=== PATIENT | female | born 1995 | race Caucasian/White ===

== ENCOUNTER 2016-06-30 16:06 | Emergency (ER) | payer OTHER ==
[~2016-06-30] VITALS: Wt 67.0 kg
[2016-06-30] MEDS ORDERED: ACETAMINOPHEN 500 MG TAB PO STA (16:51)
--- NOTE | 2016-06-30 16:59 | ERD ---
ER Documentation Chief Complaint Date/Time DATE: 06/30/16 TIME: 16:57 Chief Complaint SHARP PAIN AT BACK OF HEAD, NO DIZZINESS, EDC 11/24/2016 HPI Patient is a 21 year old female who is who states she is approximately 19 weeks presents to the ED with occipital headache that radiates to the front and a feeling of "fluid moving in her head." She also complains of runny nose. She denies cough, congestion, fever, chills. Denies dizziness, neck pain neck stiffness. She denies stating this is the worst headache of her life. States that her pain comes and goes and currently it is a mild headache. Denies leg pain or leg swelling. Denies abdominal pain, nausea, vomiting or diarrhea. Denies pelvic pain or vaginal bleeding. She states that she does have movements. ROS All systems reviewed and are negative except as per history of present illness. Medications Home Meds Active Scripts Sodium Chloride (Saline Nasal [place]) 30 Ml [place], 30 ML NS BID for 14 Days, SPRAY Prov:BONNY HOOD PA-C 06/30/16 Acetaminophen* (Tylophen*) 500 Mg Capsule, 1 CAP PO Q6H Y for PAIN AND OR ELEVATED TEMP, #20 CAP Prov:BONNY HOOD PA-C 06/30/16 Allergies Allergies: Coded Allergies: No Known Allergy (Unverified , 12/20/12) PMhx/Soc History of Surgery: Yes (rhinoplasty 2011, tonsilectomy) Anesthesia Reaction: No Hx Neurological Disorder: No Hx Respiratory Disorders: No Hx Cardiac Disorders: No Hx Psychiatric Problems: No Hx Miscellaneous Medical Probl: Yes (OVARIAN CYSTS) Hx Alcohol Use: No Hx Substance Use: No Hx Tobacco Use: No FmHx Family History: No coronary disease, No diabetes, No other Physical Exam Vitals Physical Exam GENERAL: Well-developed, well-nourished female. Appears in no acute distress. HEAD: Normocephalic, atraumatic. EYES: Pupils are equally reactive bilaterally. EOMs grossly intact. No conjunctival erythema. Lateral TMs are nonerythematous and nonbulging. ENT: Moist mucous membranes. No uvula deviation. No kissing tonsils. No exudates. Nontender to sinuses. NECK: Supple. No lymphadenopathy or thyromegaly. No meningismus. negative kernig. negative brudinski. LUNG: Clear to auscultation bilaterally. No rhonchi, wheezing, rales or coarse breath sounds. HEART: Regular rate and rhythm. No murmurs, rubs or gallops. Extremities: Equal pulses bilaterally. No peripheral clubbing, cyanosis or edema. No unilateral leg swelling. NEUROLOGIC: Alert and oriented. Moving all four extremities. 5/5 strength in all extremities. Normal speech. Steady gait. Cranial nerves II through XII intact. SKIN: Normal color. Warm and dry. No rashes or lesions. Capillary refill < 2 seconds Results 24 hrs Laboratory Tests Test 06/30/16 16:50 Urine Color LT. YELLOW Urine Clarity SLIGHTLY CLOUDY Urine pH 5.5 Urine Specific [place] 1.020 Urine Ketones NEGATIVE Urine Nitrite NEGATIVE Urine Bilirubin NEGATIVE Urine Urobilinogen 0.2 E.U./dL Urine Leukocyte Esterase NEGATIVE Urine Hemoglobin NEGATIVE Urine Glucose NEGATIVE% Urine Total Protein NEGATIVE Current Medications Medications (Trade) Dose Ordered Sig/Delfino Route PRN Reason Start Time Stop Time Status Last Admin Dose Admin Acetaminophen (Tylenol Tab) 500 mg ONCE STAT PO 06/30/16 16:51 06/30/16 16:53 DC 06/30/16 17:01 Procedures/MDM ER COURSE: I kept the patient and/or family informed of laboratory and diagnostic imaging results throughout the emergency room course. MEDICAL DECISION MAKING: This is a 21 year old female who is G1PO who presents with mild headache and facial pain since yesterday . Vital signs were reviewed. Patient is afebrile. Patient is not hypoxic. Patient is not toxic or ill appearing. I consulted with Dr. haji regarding this patient who reviewed for studies. Patient has stable vitals and is hemodynamically stable. Her cranial nerve exam is within normal limits.. Patient is neurovascularly intact. Patient does have mild runny nose. Her urinalysis is negative for nitrites, hematuria, leukocytes, proteins or ketones. I have low suspicion for preeclampsia or eclampsia. Low suspicion for intracranial hemorrhage, meningitis, intracranial mass, concussion , temporal arteritis, stroke, elevated intracranial pressure, seizure. Patient does not have pelvic pain or vaginal bleeding and has positive movements. I did not think a ultrasound was necessary at this time. Low suspicion for ectopic , , molar , endometriosis, PID, cervicitis, septic , molar , HELLP syndrome, preeclampsia, eclampsia, placenta previa, placenta abruptia. DISCHARGE: At this time, patient is stable for discharge and outpatient management with no new complaints during the ER course. Patient was sent home with Tylenol and saline nasal spray. Patient will be discharged home with instructions to recheck for new or worsening symptoms such as fever, nausea, weakness, LOC and to follow up with primary care in the next 1-2 days. Patient was advised to return to the ER for any new or worsening symptoms. Plan was discussed and patient and/or family understands and agrees. Home instructions were given. Departure Diagnosis: Primary Impression: Headache Headache type: unspecified Headache chronicity pattern: unspecified pattern Intractability: not intractable Qualified Code: R51 - Nonintractable headache, unspecified chronicity pattern, unspecified headache type Condition: BONNY Rosas PA-C June 30, 2016 16:59 Primary Impression: Headache Headache type: unspecified Headache chronicity pattern: unspecified pattern Intractability: not intractable Qualified Code: R51 - Nonintractable headache, unspecified chronicity pattern, unspecified headache type Condition: BONNY Rosas PA-C June 30, 2016 16:59
[2016-06-30 17:18] LABS: ADD UMIC NO; URINE BILIRUBIN (Dip) NEGATIVE (NEGATIVE); URINE BLOOD (Dip) NEGATIVE (NEGATIVE); URINE COLOR LT. YELLOW (YELLOW); URINE GLUCOSE (Dip) NEGATIVE (NEGATIVE); URINE KETONES (Dip) NEGATIVE (NEGATIVE); URINE LEUKOCYTE ESTERASE (Dip) NEGATIVE (NEGATIVE); URINE NITRITE (Dip) NEGATIVE (NEGATIVE); URINE TOTAL PROTEIN (Dip) NEGATIVE (NEGATIVE); URINE UROBILINOGEN (Dip) 0.2 E.U./dL (0.1-1.0)
[2016-06-30] MEDS ORDERED: ACET500C5 PO (17:29)
[2016-06-30] MEDS ORDERED: SODI30SP2 NS (17:30)
[2016-06-30 18:08] VITALS: BP 119/68; PULSE 71; RESP 15; TEMP 98.1
== END 2016-06-30 18:09 | disposition home or self-care (01) ==
LOC: FTE 16:06
DX: O99.89 Other specified diseases and conditions complicating pregnancy, childbirth and the puerperium (principal); R51 Headache; Z3A.19 19 weeks gestation of pregnancy
CPT/HCPCS: 81003; Z7610; 99283

== ENCOUNTER 2017-05-25 19:47 | Emergency (ER) | END 2017-05-25 22:14 | disposition home or self-care (01) ==

== ENCOUNTER 2017-07-13 21:17 | Emergency (ER) | END 2017-07-14 01:50 | disposition home or self-care (01) ==

== ENCOUNTER 2018-05-31 12:58 | Emergency (ER) | payer OTHER ==
[~2018-05-31] VITALS: Wt 61.0 kg
[~2018-05-31 12:58] MED LIST: ACET500C5 PO; AMOX500C2 PO; CETI1TAB6 PO; IBUP-1561 PO; SODI30SP2 NS
[2018-05-31 13:01] VITALS: BP 144/85; PULSE 74; RESP 18
[2018-05-31] MEDS ORDERED: ACETAMINOPHEN 325 MG TAB PO ONE (15:00)
[2018-05-31] MEDS ORDERED: ACET500C5 PO (15:46)
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
== END 2018-05-31 16:04 | disposition home or self-care (01) ==
LOC: FTE 12:58
DX: M54.2 Cervicalgia (principal); R42 Dizziness and giddiness; R10.31 Right lower quadrant pain
CPT/HCPCS: 70450; 72040; 81025; Z7502; Z7610